=== PATIENT | male | born 1980 | race Caucasian/White ===

== ENCOUNTER 2017-10-23 19:30 | Emergency (ER) | payer MEDICAID ==
[~2017-10-23] VITALS: Ht 182.9 cm; Wt 99.8 kg
[~2017-10-23 19:30] MED LIST: ALBU18; TRAZ50TA2
[2017-10-24 02:53] VITALS: BP 162/78
[2017-10-24] MEDS ORDERED: cefTRIAXone SOD 1,000 MG VL IM ONE (03:00)
[2017-10-24] MEDS ORDERED: LEVOFLOXACIN 250 MG TAB PO ONE (03:45)
[2017-10-24] MEDS ORDERED: HYDROcodone-ACET 10/325MG TAB PO ONE (03:45)
== END 2017-10-24 04:17 | disposition home or self-care (01) ==
LOC: EDBD 19:30 → ER 19:30
DX: K04.7 Periapical abscess without sinus (principal); F17.210 Nicotine dependence, cigarettes, uncomplicated; J45.909 Unspecified asthma, uncomplicated; N50.819 Testicular pain, unspecified; Z88.0 Allergy status to penicillin
CPT/HCPCS: 70486

== ENCOUNTER 2021-06-06 13:13 | Emergency (ER) | payer MEDICAID ==
[~2021-06-06] VITALS: Ht 193 cm; Wt 136.1 kg
[2021-06-06] MEDS ORDERED: ONDANSETRON HCL 4 MG/2 ML VIAL IV ONE (13:45)
[2021-06-06] MEDS ORDERED: PANTOPRAZOLE 40 MG/10 ML VIAL INJ IV ONE (13:45)
[2021-06-06 14:43] LABS: Basophils # (auto) 0.1 10 ^3/uL (0-0.2); Eosinophils # (auto) 0.1 10 ^3/uL (0-0.8)
[2021-06-06 14:44] LABS: Basophils % (auto) 0.7 % (0.0-2.0); Eosinophils % (auto) 0.6 % (0.0-7.0); Hematocrit 50.9 % (41.0-53.0); Hemoglobin 17.8 g/dL (13.5-17.5); Lymphocytes % (auto) 28.5 % (10.0-50.0); Mean Corpuscular Hemoglobin 35.4 pg (28.0-32.0); Mean Corpuscular Hgb Conc. 34.9 g/dL (32.0-36.0); Mean Corpuscular Volume 101.5 fL (80.0-100.0); Monocytes # (auto) 0.8 10 ^3/uL (0-1.3); Neutrophils % (auto) 64.2 % (37.0-80.0); Nucleated Red Blood Cells % 0.2 %; Red Blood Cells 5.02 10^6/uL (4.5-5.90); Red Cell Distribution Width 13.5 % (11.8-14.3); White Blood Cell 14.1 10^3/uL (4.4-10.8)
[2021-06-06 15:02] LABS: Albumin 4.2 g/dL (3.4-5.0); Anion Gap 9 (5-15); BUN/Creatinine Ratio 10.5; Blood Urea Nitrogen 11 mg/dL (7-18); Carbon Dioxide 22 mmol/L (21-32); Chloride 108 mmol/L (98-107); GFR African American 100 mL/min; GFR Non-African American 82 mL/min; Glucose 96 mg/dL (74-106); Lipase 185 U/L (73-393); Potassium 3.8 mmol/L (3.5-5.1); Sodium 139 mmol/L (136-145)
[2021-06-06 15:07] LABS: Alanine Aminotransferase 54 U/L (16-61); Alkaline Phosphatase 81 U/L (45-117); Aspartate Aminotransferase 25 U/L (15-37); Bilirubin, Total 0.9 mg/dL (0.2-1.0); Total Protein 8.3 g/dL (6.4-8.2)
[2021-06-06 15:40] VITALS: BP 145/93
== END 2021-06-06 15:40 | disposition home or self-care (01) ==
LOC: ER 13:13 → EDBD 13:13 → ER 15:40
DX: R10.13 Epigastric pain (principal); J45.909 Unspecified asthma, uncomplicated; F17.210 Nicotine dependence, cigarettes, uncomplicated; F12.10 Cannabis abuse, uncomplicated; Z88.0 Allergy status to penicillin
CPT/HCPCS: 36415; 74176; 80053; 83690; 84484; 85025; 93005

== ENCOUNTER 2025-02-15 22:19 | Emergency (ER) | payer MEDICAID ==
[~2025-02-15] VITALS: Ht 195.6 cm; Wt 136.3 kg
[~2025-02-15 22:19] MED LIST changes: +TRAZ-227; -TRAZ50TA2
[2025-02-15 22:43] VITALS: BP 155/87; PULSE 89; RESP 20; TEMP 98; O2SAT 98
== END 2025-02-16 00:10 | disposition left against medical advice (07) ==
LOC: ER 22:19
DX: F41.9 Anxiety disorder, unspecified (principal); Z53.21 Procedure and treatment not carried out due to patient leaving prior to being seen by health care provider